=== PATIENT | female | born 1945 | race Caucasian/White ===

== ENCOUNTER → 2018-10-04 | Outpatient (CLI) | payer OTHER ==
[~2018-10-04] MED LIST: ALBUTEROL SULF8.5 GM IH; CITRACAL PLUS1 EAC1 PO; ESTROPIPATE0.75 MG PO; HYOSCYAMINE0.125 MG PO; LOSARTAN POTAS100 MG PO; NORCO 5-325 TA1 EACH PO; NORVASC5 MG PO; UNICOMPLEX M TA1 TA1 PO
== END ==
LOC: CAT 11:55
DX: R91.1 Solitary pulmonary nodule (principal); J98.4 Other disorders of lung; E04.2 Nontoxic multinodular goiter; I31.3 Pericardial effusion (noninflammatory); Z88.8 Allergy status to other drugs, medicaments and biological substances

== ENCOUNTER → 2019-10-21 | Outpatient (CLI) | payer OTHER | LOC: CAT 11:54 | DX: R91.8 Other nonspecific abnormal finding of lung field (principal) ==

== ENCOUNTER → 2020-10-12 | Outpatient (CLI) | payer OTHER | LOC: CAT 10:34 | PROVIDERS: ATTEND Internal Medicine | DX: R91.8 Other nonspecific abnormal finding of lung field (principal); E04.9 Nontoxic goiter, unspecified ==